=== PATIENT | male | born 1960 | race Caucasian/White ===

== ENCOUNTER 2022-09-15 14:48 | Outpatient (CLI) | payer BC ==
[~2022-09-15 14:48] MED LIST: Iopamidol 300 61% 100 ML VIAL FS ONE
== END 2022-09-15 14:49 | disposition home or self-care (01) ==
LOC: CSHCT 14:48
PROVIDERS: ATTEND Family Medicine
DX: R31.9 Hematuria, unspecified (principal); K76.9 Liver disease, unspecified; K76.6 Portal hypertension; N28.1 Cyst of kidney, acquired; K82.8 Other specified diseases of gallbladder
CPT/HCPCS: 74178; Q9967

== ENCOUNTER 2025-05-19 13:46 | Emergency (ER) | payer BC ==
[~2025-05-19 13:46] MED LIST changes: -Iopamidol 300 61% 100 ML VIAL FS ONE; +Iopamidol 370 76% 100 ML VIAL ONE
[2025-05-19 16:35] LABS: ALT (SGPT) 46 U/L (Less than 45); AST (SGOT) 49 U/L (11-34); Albumin 3.4 g/dL (3.1-4.5); Alkaline Phosphatase 92 U/L (40-110); Anion Gap 11 mmol/L (10-20); BUN (Urea Nitrogen) 26 mg/dL (8.4-25.7); Bilirubin, Total 0.7 mg/dL (0.3-1.2); Calc. Creatinine Clearance 0 mL/min (70-130); Calcium 8.2 mg/dL (7.8-10.44); Carbon Dioxide 19 mmol/L (23-31); Chloride 110 mmol/L (98-107); Globulin 3.0 g/dL (2.4-3.5); Glucose 127 mg/dL (80-115); Lipase 57 U/L (8-78); Magnesium 2.0 mg/dL (1.6-2.6); Potassium 4.7 mmol/L (3.5-5.1); Sodium 135 mmol/L (136-145)
[2025-05-19 16:41] LABS: Troponin I Less than 0.010 ng/mL (< 0.028)
[2025-05-19 17:18] LABS: #Basophils Less than 0.03 10x3/uL (0.0-0.2); #Eosinophils Less than 0.03 10x3/uL (0.0-0.5); #Monocytes 0.13 10x3/uL (0.0-1.1); #Neutrophils 2.94 10x3/uL (1.5-8.4); %Basophils 0.3 % (0.0-2.0); %Eosinophils 0.0 % (0.0-6.0); %Lymphocytes 14.9 % (18.0-47.0); %Monocytes 3.6 % (0.0-10.0); %Neutrophils 80.9 % (40.0-75.0); Hematocrit 37.6 % (38.8-50.0); Hemoglobin 13.2 g/dL (13.5-17.5); MDiff Complete? YES; Mean Corpuscular Hemoglobin 33.7 pg (27.0-33.0); Mean Corpuscular Volume 95.9 fL (81.2-95.1); Platelet Adequacy Comment Appears Decreased; Platelet Count 80 10x3/uL (150-450); RBC Morphology Within Normal Limits; Red Blood Cell (RBC) Count 3.92 10x6/uL (4.32-5.72); White Blood Cell (WBC) Count 3.63 10x3/uL (3.5-10.5)
== END 2025-05-19 19:11 ==
LOC: CSHERS 13:46
DX: Z53.21 Procedure and treatment not carried out due to patient leaving prior to being seen by health care provider (principal); I10 Essential (primary) hypertension
CPT/HCPCS: 36415; 70450; 70496; 70498; 80053; 83690; 83735; 84484; 85025; 87428; 93005; 96374; Q9967